=== PATIENT | female | born 1975 | race American Indian/Alaskan Native ===

== ENCOUNTER 2022-05-04 10:13 | Day surgery (SDC) | payer MEDICARE ==
[2022-05-04] MEDS ORDERED: BUPIVACAINE/PF (0.5%) 5 MG/1 ML 30 ML VIAL INFILTRATI ONE ×2 (11:24→11:54)
[2022-05-04] MEDS ORDERED: LIDOCAINE (2%) 20 MG/1 ML VIAL 20 ML MDV INFILTRATI ONE ×2 (11:24→11:54)
--- NOTE | 2022-05-04 11:39 | Procedure Note ---
Date of procedure: 05/04/22 Pre-op diagnosis: breast cancer Post-op diagnosis: same Procedure: right sided port removal Findings: HPI and indication: Patient is a 46 year-old female with a history of breast cancer. The patient had a port placed 2 years ago and underwent a full course of chemotherapy. She was given approval by her oncologist to have the port removed. All risk, benefits, alternatives to surgery were discussed with the patient questions answered. Consent was obtained in the office. Procedure in detail: Patient was identified in the preoperative area and taken back to the minor procedure room. She was placed on the stretcher in supine position. The right upper chest and neck were prepped and draped in usual sterile fashion and a timeout was performed. Local anesthetic was infiltrated into the skin at the intended incision site at the old right upper chest scar. An incision was made using a 15 blade. Dissection was carried down through the subcutaneous tissue using hemostat. The port was identified and the catheter grasped between 2 hemostats. The patient was placed in Trendelenburg. The catheter and port were dissected from the capsule using a combination of blunt dissection with a hemostat and electrocautery. The port and catheter was removed and pressure held at the site for several minutes. There was no bleeding seen once pressure was removed. The wound was then irrigated hemostasis very carefully ensured. No bleeding was seen. The wound was then closed in layered fashion with the deep dermal layer closed with interrupted 3-0 Vicryl stitches. Local anesthetic was once again infiltrated into the skin. The skin was approximated using 4-0 Monocryl subcuticular running stitch and skin glue. At the end of the case all sponge, instrument, sharp counts were correct x2. The patient tolerated the procedure very well. She was discharged home in stable condition. Anesthesia: local Surgeon: KWASI ABAD Estimated blood loss: minimal Pathology: list (port - for ID only) Specimen disposition: to lab Condition: stable Disposition: other (home)
[2022-05-04] MEDS ORDERED: SODIUM CHLORIDE 0.9% IRR 1,500 ML BOTTLE IR ONE (11:54)
[2022-05-04 12:14] VITALS: BP 156/92
== END 2022-05-04 12:15 | disposition home or self-care (01) ==
LOC: OR 10:13
PROVIDERS: ATTEND Surgery
DX: Z45.2 Encounter for adjustment and management of vascular access device (principal); C50.919 Malignant neoplasm of unspecified site of unspecified female breast; I10 Essential (primary) hypertension; E11.9 Type 2 diabetes mellitus without complications; I25.2 Old myocardial infarction; K21.9 Gastro-esophageal reflux disease without esophagitis; Z88.8 Allergy status to other drugs, medicaments and biological substances; Z98.891 History of uterine scar from previous surgery; Z98.890 Other specified postprocedural states; Z80.3 Family history of malignant neoplasm of breast; Z82.49 Family history of ischemic heart disease and other diseases of the circulatory system
CPT/HCPCS: 36590; 82962; 88300; J3490; 88302